=== PATIENT | male | born 1930 | race Caucasian/White ===

== ENCOUNTER 2016-08-20 15:28 | Day surgery (SDC) | payer OTHER, BC ==
[~2016-08-20] VITALS: Ht 177.8 cm; Wt 86.0 kg
[~2016-08-20 15:28] MED LIST: CIPRO500 MG PO; FLAGYL500 MG PO
[2016-08-20] MEDS ORDERED: CALCIUM 500 WI1 EAC2 PO (15:58)
[2016-08-20] MEDS ORDERED: MULTIPLE VITAM1 EACH PO (15:58)
[2016-08-20] MEDS ORDERED: ZINC50 M3 PO (15:59)
[2016-08-20 16:10] VITALS: BP 152/70
[2016-08-20 16:39] LABS: EOSINOPHIL (%) 2.8 % (0-5); EOSINOPHIL COUNT 0.1 K/uL (0-0.3); HEMATOCRIT 36.1 % (38.0-50.0); IMMATURE GRANULOCYTE (%) 0.2 % (0.0-0.7); INSTRUMENT ABS NEUTROPHIL CT 2.3 K/uL; LYMPHOCYTE COUNT 1.4 K/uL (1.0-2.8); MCHC 33.2 G/DL (30.0-36.0); MCV 96.3 FL (86-99); MEAN PLAT.VOLUME 9.6 uM^3 (9.0-12.4); MONOCYTE (%) 10.6 % (3-12); MONOCYTE COUNT 0.5 K/uL (0-0.8); NEUTROPHIL (%) 53.4 % (45-76); NEUTROPHIL COUNT 2.3 K/uL (1.8-6.4); PLATELET COUNT 226 K/uL (156-360); RBC DIS.WIDTH-CV 12.7 % (11.8-14.6); RED BLOOD COUNT 3.75 M/uL (4.00-5.50); WHITE BLOOD COUNT 4.3 K/uL (4.1-10.2)
[2016-08-20 16:54] LABS: ANION GAP 5 MEQ/L (2-14); CHLORIDE 103 MEQ/L (99-109); POTASSIUM 4.2 MEQ/L (3.7-5.4); SAMPLE HEMOLYSIS CHECK 0; SAMPLE ICTERIC CHECK 0; SAMPLE LIPEMIA CHECK 0; SODIUM 136 MEQ/L (136-147)
[2016-08-20 16:59] LABS: GFR ESTIMATE (CALCULATED) > 59 mL/min/; GLUCOSE 85 mg/dL (70-99); UREA NITROGEN (BUN) 17 mg/dL (9-23)
[2016-08-20 19:59] VITALS: BP 139/78
[2016-08-20 20:40] VITALS: BP 144/69
== END 2016-08-20 20:55 | disposition home or self-care (01) ==
LOC: SDC 15:28
PROVIDERS: Ophthalmology
DX: H44.111 Panuveitis, right eye (principal); H33.41 Traction detachment of retina, right eye; M19.90 Unspecified osteoarthritis, unspecified site; Z87.891 Personal history of nicotine dependence
CPT/HCPCS: 80048; 85025; 88160; 93005; J0690; J1100; J1120; J1885; J2795; J2930; J3010; J3300

== ENCOUNTER 2017-06-22 22:37 | Inpatient (IN) | payer OTHER, BC ==
[~2017-06-22] VITALS: Ht 182.9 cm; Wt 80.1 kg
[~2017-06-22 22:37] MED LIST changes: +CALCIUM 500 WI1 EAC2 PO; +MULTIPLE VITAM1 EACH PO; +ZINC50 M3 PO
[2017-06-22 23:07] LABS: HEMATOCRIT 31.5 % (38.0-50.0); MCH 32.2 PG (29.0-34.0); MCHC 34.3 G/DL (30.0-36.0); RBC DIS.WIDTH-CV 11.8 % (11.8-14.6); RBC DIS.WIDTH-SD 40.2 % (39-53); WHITE BLOOD COUNT 8.9 K/uL (4.1-10.2)
[2017-06-22 23:14] LABS: INTER. NORMALIZED RATIO 1.3
[2017-06-22 23:16] LABS: PTT 26.8 SEC (25-37)
[2017-06-22 23:18] LABS: CHLORIDE 102 mEq/L (99-109); POTASSIUM 4.8 mEq/L (3.7-5.4); SODIUM 133 mEq/L (136-147)
[2017-06-22 23:20] LABS: GLUCOSE 104 mg/dL (70-99)
[2017-06-22 23:21] LABS: HEMOGLOBIN 10.8 G/DL (12.5-16.6); PLATELET COUNT 395 K/uL (156-360); RED BLOOD COUNT 3.35 M/uL (4.00-5.50)
[2017-06-22 23:24] LABS: CREATININE 1.1 mg/dL (0.6-1.3); GFR ESTIMATE (CALCULATED) > 59 mL/min/ (58.99-99999)
[2017-06-22 23:25] LABS: UREA NITROGEN (BUN) 17 mg/dL (9-23)
[2017-06-22 23:28] LABS: TROP-I INTERPRETATION NEGATIVE; TROPONIN-I < 0.01 ng/mL (0.0-0.30)
[2017-06-22 23:48] LABS: HDL CHOLESTEROL 34 MG/DL (Desirable>=40); LDL CHOLESTEROL 64 mg/dL (Desirable<100); NON-HDL CHOLESTEROL 80 mg/dL (Desirable<160); TOTAL CHOLESTEROL 114 mg/dL (Desirable<200); TRIGLYCERIDES 78 MG/DL (Normal: <150)
[2017-06-22 23:52] LABS: ABS NEUTROPHIL COUNT 6.8; BAND NEUTROPHILS 0.9 % (0-8.0); BASOPHILS 2.6 %; EOSINOPHIL ABS CT 0.2; EOSINOPHILS 1.8 % (0-5.0); LYMPHOCYTES 13.3 % (15.0-45.0); MONOCYTES 4.4 % (0-9.0); MYELOCYTES 1.8 %; OVALOCYTES 1+; PLAT.SUFFICIENCY ADEQUATE; POIKILOCYTOSIS 1+; SEG.NEUTROPHILS 75.2 % (46.0-76.0); SMUDGE CELLS 12.4
[2017-06-23] MEDS ORDERED: ATROPINE 1100 DROP/5 RIGHT EYE (01:54)
[2017-06-23] MEDS ORDERED: PRAVASTATIN SOD40 MG PO (01:54)
[2017-06-23] MEDS ORDERED: LEVOTHYROXINE50 MCG PO (01:55)
[2017-06-23] MEDS ORDERED: OMEPRAZOLE40 M1 PO (01:55)
[2017-06-23 06:23] LABS: TROP-I INTERPRETATION NEGATIVE; TROPONIN-I < 0.01 ng/mL (0.0-0.30)
[2017-06-23 06:30] LABS: HEMATOCRIT 29.7 % (38.0-50.0); HEMOGLOBIN 10.1 G/DL (12.5-16.6); PLATELET COUNT 364 K/uL (156-360); RBC DIS.WIDTH-CV 11.8 % (11.8-14.6); RBC DIS.WIDTH-SD 40.5 % (39-53); RED BLOOD COUNT 3.16 M/uL (4.00-5.50); WHITE BLOOD COUNT 8.4 K/uL (4.1-10.2)
[2017-06-23 06:40] LABS: APPEARANCE CLEAR ((CLEAR)); BILIRUBIN NEGATIVE; BLOOD NEGATIVE; COLOR YELLOW ((YELLOW)); GLUCOSE (STRIP) NEGATIVE; KETONES NEGATIVE; LEUKOCYTES NEGATIVE; NITRITE NEGATIVE; PROTEIN (STRIP) NEGATIVE; UCUL ADDED? NO; UROBILINOGEN 0.2 MG/DL (0.2-1.0)
[2017-06-23 07:11] LABS: SPECIFIC GRAVITY 1.064 (1.000-1.030)
[2017-06-23 08:38] LABS: HEMOGLOBIN A1c (GLYCOHEMOGLOB) 5.6 % (Below 5.7)
[2017-06-23 09:31] LABS: CHLORIDE 105 mEq/L (99-109); POTASSIUM 4.2 mEq/L (3.7-5.4); SODIUM 134 mEq/L (136-147)
[2017-06-23 09:33] LABS: GLUCOSE 91 mg/dL (70-99)
[2017-06-23 09:37] LABS: CREATININE 0.9 mg/dL (0.6-1.3); GFR ESTIMATE (CALCULATED) > 59 mL/min/ (58.99-99999)
[2017-06-23 09:38] LABS: UREA NITROGEN (BUN) 14 mg/dL (9-23)
[2017-06-23 13:06] LABS: TROP-I INTERPRETATION NEGATIVE; TROPONIN-I < 0.01 ng/mL (0.0-0.30)
[2017-06-23 16:30] VITALS: BP 116/59
[2017-06-23 19:15] VITALS: BP 105/74
[2017-06-23 23:50] VITALS: BP 110/64
[2017-06-24 04:00] VITALS: BP 108/70
[2017-06-24 05:59] LABS: HEMATOCRIT 29.9 % (38.0-50.0); HEMOGLOBIN 10.2 G/DL (12.5-16.6); MCH 32.3 PG (29.0-34.0); MCHC 34.1 G/DL (30.0-36.0); MCV 94.6 FL (86-99); PLATELET COUNT 372 K/uL (156-360); RBC DIS.WIDTH-CV 11.9 % (11.8-14.6); RBC DIS.WIDTH-SD 41.3 % (39-53); RED BLOOD COUNT 3.16 M/uL (4.00-5.50); WHITE BLOOD COUNT 7.6 K/uL (4.1-10.2)
[2017-06-24 06:42] LABS: CHLORIDE 100 MEQ/L (99-109); CREATININE 0.8 MG/DL (0.6-1.3); GFR ESTIMATE (CALCULATED) > 59 mL/min/ (58.99-99999); GLUCOSE 87 mg/dL (70-99); POTASSIUM 4.4 MEQ/L (3.7-5.4); SODIUM 137 MEQ/L (136-147); UREA NITROGEN (BUN) 14 mg/dL (9-23)
[2017-06-24 08:00] VITALS: BP 112/61
[2017-06-24 13:11] VITALS: BP 144/78
[2017-06-24 16:37] VITALS: BP 127/70
[2017-06-24] MEDS ORDERED: LUMIGAN 0.50 DROP/22 RIGHT EYE (19:03)
[2017-06-24 19:30] VITALS: BP 116/65
[2017-06-25] VITALS (7 sets, daily range): BP systolic 97–139; BP diastolic 53–77
[2017-06-26 00:19] VITALS: BP 139/77
[2017-06-26 05:12] VITALS: BP 123/63
[2017-06-26 06:51] VITALS: BP 127/69
[2017-06-26] MEDS ORDERED: ASPIR 8181 M1 PO (10:56)
[2017-06-26] MEDS ORDERED: LOVENOX40 MG/0.4 SC (10:56)
[2017-06-26 12:37] VITALS: BP 118/74
== END 2017-06-26 13:10 | DRG 167 ==
LOC: EME 22:37 → 4EAST 06-23 01:35 → EDOF 06-23 01:35 → ENRESERV 06-23 01:46 → 4EAST 06-23 15:52
PROVIDERS: Emergency Medicine; Hospitalist
PROC: 06H03DZ Insertion of Intraluminal Device into Inferior Vena Cava, Percutaneous Approach (ICD-10-PCS; principal; 2017-06-24)
DX: I26.92 Saddle embolus of pulmonary artery without acute cor pulmonale (principal); J98.11 Atelectasis; I69.351 Hemiplegia and hemiparesis following cerebral infarction affecting right dominant side; J90 Pleural effusion, not elsewhere classified; I82.403 Acute embolism and thrombosis of unspecified deep veins of lower extremity, bilateral; R47.01 Aphasia; E03.9 Hypothyroidism, unspecified; Z51.5 Encounter for palliative care; K21.9 Gastro-esophageal reflux disease without esophagitis; Z66 Do not resuscitate; Z77.090 Contact with and (suspected) exposure to asbestos; I73.9 Peripheral vascular disease, unspecified; G93.9 Disorder of brain, unspecified; R29.810 Facial weakness; R29.701 NIHSS score 1; Z85.72 Personal history of non-Hodgkin lymphomas; Z86.711 Personal history of pulmonary embolism; Z87.891 Personal history of nicotine dependence
CPT/HCPCS: 70450; 70496; 70498; 71275; 80047; 80048; 80061; 81003; 83036; 84484; 85025; 85027; 85610; 85730; 93005; 93306; 93970; 99281; 99285; C1769; C1894; C8923; J1644; J1650; J2250; J3010

== ENCOUNTER → 2017-07-24 | Outpatient (CLI) | payer OTHER, BC ==
[~2017-07-24] MED LIST changes: +ASPIR 8181 M1 PO; +ATROPINE 1100 DROP/5 RIGHT EYE; +LEVOTHYROXINE50 MCG PO; +LOVENOX40 MG/0.4 SC; +LUMIGAN 0.50 DROP/22 RIGHT EYE; +OMEPRAZOLE40 M1 PO; +PRAVASTATIN SOD40 MG PO
== END | disposition home or self-care (01) ==
LOC: RAD 13:00
DX: G93.89 Other specified disorders of brain (principal); C71.9 Malignant neoplasm of brain, unspecified
CPT/HCPCS: 70450